=== PATIENT | male | born 1975 | race Caucasian/White ===

== ENCOUNTER 2018-05-10 09:11 | Day surgery (SDC) | payer MEDICAID ==
[~2018-05-10] VITALS: Ht 198.1 cm; Wt 81.6 kg
[2018-05-10] MEDS ORDERED: PHENYLEPHRINE HCL 10 MG/ML VL IV ONE (09:12)
[2018-05-10] MEDS ORDERED: ceFAZolin 1GM/50ML 50 ML IV ONE (09:33)
[2018-05-10] MEDS ORDERED: BUPIVACAINE 0.75% INJ 10ML MPV SDV IJ ONE (09:43)
[2018-05-10 10:04] LABS: Basophils # (auto) 0.1 uL; Basophils % (auto) 1.1 % (0.0-2.0); Eosinophils # (auto) 0.2 uL; Eosinophils % (auto) 1.6 % (0.0-7.0); Hematocrit 49.3 % (41.0-53.0); Hemoglobin 16.3 g/dL (13.5-17.5); Lymphocytes # (auto) 2.2 uL; Lymphocytes % (auto) 22.8 % (10.0-50.0); Mean Corpuscular Hemoglobin 30.3 pg (28.0-32.0); Mean Corpuscular Volume 91.8 fL (80.0-100.0); Monocytes # (auto) 0.6 uL; Monocytes % (auto) 6.1 % (0.0-12.0); Neutrophils # (auto) 6.6 uL; Neutrophils % (auto) 68.4 % (37.0-80.0); Nucleated Red Blood Cells % 0.1 %; Platelet Count (auto) 392 10^3/uL (140-450); Red Blood Cells 5.37 10^6/uL (4.5-5.90); Red Cell Distribution Width 13.7 % (11.8-14.3); White Blood Cell 9.7 10^3/uL (4.4-10.8)
[2018-05-10] MEDS ORDERED: ONDANSETRON HCL 4 MG/2 ML VIAL IV ONE (10:15)
[2018-05-10] MEDS ORDERED: LABETALOL HCL 5 MG/ML 4ML SYRINGE IV PRN (10:15)
[2018-05-10] MEDS ORDERED: MORPHINE SULFATE 4 MG/ML SYR/VIAL IV PRN (10:15)
[2018-05-10] MEDS ORDERED: MIDAZOLAM HCL 1MG/1ML-2 ML VIAL IV PRN (10:15)
[2018-05-10] MEDS ORDERED: ePHEDrine SULFATE 50 MG/ML AMP IV PRN (10:15)
[2018-05-10] MEDS ORDERED: KETOROLAC TROMETH 30 MG/ML 1ML VIAL IV ONE (10:15)
[2018-05-10 10:18] LABS: BUN/Creatinine Ratio 20.7; Calcium 9.6 mg/dL (8.5-10.1); Potassium 4.4 mmol/L (3.5-5.1)
[2018-05-10 10:19] LABS: INR 0.9 (0.9-1.15); Partial Thromboplastin Time 30.1 sec (23.78-33.04); Prothrombin Time 9.7 sec (9.27-12.13)
[2018-05-10] MEDS ORDERED: fentaNYL CITRATE 100 MCG/2 ML VL ONE (10:20)
[2018-05-10] MEDS ORDERED: MIDAZOLAM HCL 1MG/1ML-2 ML VIAL ONE (10:21)
[2018-05-10] MEDS ORDERED: MEPERIDINE HCL (50 MG/ML) 1 ML VIAL ONE ×2 (10:21→11:01)
[2018-05-10] MEDS ORDERED: DEXAMETHASONE SOD PHOS 10MG/1ML VIAL INJ ONE (10:29)
[2018-05-10] MEDS ORDERED: PROPOFOL 10 MG/ML 20 ML IV ONE (10:29)
[2018-05-10] MEDS: HYDROmorphone HCL 2 MG/ML VL IV PRN ×2 (12:00→12:19)
[2018-05-10] MEDS ORDERED: MORPHINE SULFATE 4 MG/ML SYR/VIAL IV ONE (12:00)
[2018-05-10 12:34] VITALS: BP 136/88
== END 2018-05-10 12:35 | disposition home or self-care (01) ==
LOC: SUR 09:11
PROVIDERS: ATTEND Podiatrist Foot & Ankle Surgery
DX: S92.002A Unspecified fracture of left calcaneus, initial encounter for closed fracture (principal); Z89.029 Acquired absence of unspecified finger(s); Z72.0 Tobacco use; X58.XXXA Exposure to other specified factors, initial encounter; Y93.89 Activity, other specified; Y92.89 Other specified places as the place of occurrence of the external cause; Y99.8 Other external cause status
CPT/HCPCS: 28415; J1170; J2175; J2370; J3010; Q4137; 36415; 73650; 80048; 85025; 85610; 85730; J0690; J1100; J2250; J2704; J3490